=== PATIENT | male | born 2005 | race Caucasian/White ===

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

== ENCOUNTER → 2024-02-19 09:03 | Outpatient (CLI) | payer OTHER, SELFPAY ==
--- NOTE | 2024-02-19 09:09 | DI.RAD.S_ITS ---
PROCEDURE: XR HAND RT MIN 3V INDICATIONS: SMASHED THUMB TECHNIQUE: 3 views of the hand(s) acquired. COMPARISON: None. FINDINGS: Bones: No dislocations. Carpal bones are normally aligned. No suspicious bony lesions. There is a nondisplaced fracture involving the radial border of the articular margin of the distal 1st proximal phalanx. There also is a suspected radial margin fracture involving the base of the 1st distal phalanx. Soft tissues: No suspicious soft tissue calcifications. IMPRESSION: Fractures at the 1st interphalangeal joint radially, nondisplaced. Dictated by: Lenard Moore M.D. on 02/19/2024 at 10:30 Approved by: Lenard Moore M.D. on 02/19/2024 at 10:32
== END ==
PROVIDERS: Referring Provider Family Medicine; Visit Provider Family Medicine
DX: S62.514A Nondisplaced fracture of proximal phalanx of right thumb, initial encounter for closed fracture (principal); S67.01XA Crushing injury of right thumb, initial encounter; X58.XXXA Exposure to other specified factors, initial encounter
CPT/HCPCS: 73130

== ENCOUNTER → 2024-03-24 09:23 | Outpatient (CLI) | payer OTHER, SELFPAY ==
--- NOTE | 2024-03-24 09:26 | DI.RAD.S_ITS ---
PROCEDURE: XR FINGER RT MIN 2V INDICATIONS: F/U FX RIGHT THUMB TECHNIQUE: AP hand, 2 views of the thumb finger(s) acquired. COMPARISON: [facility], CR, XR HAND RT MIN 3V, 02/19/2024, 9:17. FINDINGS: Continued, ongoing healing of the thumb proximal and distal phalangeal fractures with 20-30 percent intra-articular extension along the volar-radial cortices. No other fracture or dislocation. The joint spaces are otherwise preserved. IMPRESSION: Continued, ongoing healing of thumb proximal and distal phalangeal fractures with intra-articular extension. Please correlate for joint laxity, as the fracture locations correspond to the attachment points of the collateral ligaments. Dictated by: Brendon Cr M.D. on 03/24/2024 at 16:47 Approved by: Brendon Cr M.D. on 03/24/2024 at 16:50
== END ==
PROVIDERS: Referring Provider Family Medicine; Visit Provider Family Medicine
DX: S62.511D Displaced fracture of proximal phalanx of right thumb, subsequent encounter for fracture with routine healing (principal); S62.521D Displaced fracture of distal phalanx of right thumb, subsequent encounter for fracture with routine healing; X58.XXXD Exposure to other specified factors, subsequent encounter
CPT/HCPCS: 73140